=== PATIENT | female | born 1955 | race Caucasian/White ===

== ENCOUNTER 2018-03-16 09:58 | Emergency (ER) | payer SELFPAY, OTHER ==
[2018-03-16] MEDS: HYDROCODONE/APAP (5/325) TAB PO (12:44)
== END 2018-03-16 14:04 | disposition home or self-care (01) ==
LOC: FTE 09:58
DX: S89.91XA Unspecified injury of right lower leg, initial encounter (principal); F17.210 Nicotine dependence, cigarettes, uncomplicated; W01.0XXA Fall on same level from slipping, tripping and stumbling without subsequent striking against object, initial encounter; Y92.9 Unspecified place or not applicable
CPT/HCPCS: 29505; 73562; 73590; 99283-25